=== PATIENT | female | born 1955 ===

== ENCOUNTER 2018-05-30 11:05 | Emergency (ER) | payer OTHER ==
[2018-05-30 11:22] VITALS: RESP 18; TEMP 97.8
[2018-05-30] MEDS ORDERED: Morphine 4 MG/ML VIAL IM STA (11:31)
--- NOTE | 2018-05-30 11:31 | ED PDOC ---
Upper Extremity Pain/Injury Time Seen by Provider: 05/30/18 11:23 Chief Complaint (Provider): Upper Extrmeity Pain/Injury History Per: Patient History/Exam Limitations: no limitations Onset/Duration Of Symptoms: Other (This morning) Additional Complaint(s): 63 y/o female with history of hypertension presents to ER for evaluation of left wrist injury after slipping and falling on floor this morning. Patient denies any dizziness, loss of consciousness or any other injury. PMD: None provided Past Medical History Reviewed: Historical Data, Nursing Documentation, Vital Signs Vital Signs: Last Vital Signs Temp 97.8 F 05/30/18 11:21 Pulse 64 05/30/18 11:21 Resp 18 05/30/18 11:21 BP Pulse Ox 100 05/30/18 11:21 - Medical History PMH: HTN - Surgical History Other surgeries: Right shoulder surgery in March 2018 - Family History Family History: States: Unknown Family Hx - Home Medications Home Medications: Ambulatory Orders Medication Instructions Recorded oxyCODONE/Acetaminophen [Percocet 1 ea PO Q8 #6 tab 05/30/18 5/325 mg Tab] - Allergies Allergies/Adverse Reactions: Allergies Allergy/AdvReac Type Severity Reaction Status Date / Time codeine Allergy SWELLING Verified 05/30/18 11:37 Review of Systems ROS Statement: Except As Marked, All Systems Reviewed And Found Negative Musculoskeletal: Positive for: Hand Pain (Left wrist) Neurological: Negative for: Dizziness Physical Exam - Reviewed Nursing Documentation Reviewed: Yes Vital Signs Reviewed: Yes - Physical Exam Appears: Positive for: Non-toxic, No Acute Distress Head Exam: Positive for: ATRAUMATIC, NORMOCEPHALIC Skin: Positive for: Normal Color, Warm, Dry Pulses-Radial (L): 2+ Extremity: Positive for: Deformity (to left wrist distal radial palmar aspect), Swelling (to left wrist distal radial palmar aspect), Other (Able to move fingers) Neurologic/Psych: Positive for: Alert, Oriented (x3) - ECG O2 Sat by Pulse Oximetry: 100 (RA) Pulse Ox Interpretation: Normal Medical Decision Making Medical Decision Making: Time: 1125 --Possible wrist fracture --Left hand and wrist x-ray and medicated for pain Scribe Attestation: Documented by Sisi Ann, acting as a scribe for Andrew Patricia MD. Discussed with PMD Dr. Prado [phone]. Agrees with splint and pain meds and wants pt to call the office on Friday Provider Scribe Attestation: All medical record entries made by the Scribe were at my direction and personally dictated by me. I have reviewed the chart and agree that the record accurately reflects my personal performance of the history, physical exam, medical decision making, and the department course for this patient. I have also personally directed, reviewed, and agree with the discharge instructions and disposition. Disposition - Clinical Impression Clinical Impression: Fracture of wrist - Patient ED Disposition Is Patient to be Admitted: No Counseled Patient/Family Regarding: Studies Performed, Diagnosis, Need For Followup, Rx Given - Disposition Disposition: Routine/Home Disposition Time: 12:24 Condition: FAIR Prescriptions: oxyCODONE/Acetaminophen [Percocet 5/325 mg Tab] 1 ea PO Q8 #6 tab Instructions: Wrist Fracture (DC)
[2018-05-30] MEDS ORDERED: Morphine 4 MG/ML VIAL ONE (11:41)
--- NOTE | 2018-05-30 12:40 | RAD ---
Date of service: 05/30/2018 PROCEDURE: Left Wrist Radiographs. HISTORY: trauma COMPARISON: None. FINDINGS: BONES: Complex impacted comminuted fracture of the distal radius with potential involvement of the articular surface. No definite carpal bone fracture identified at this time. JOINTS: No subluxation or dislocation. Degenerative changes seen at the radiocarpal joints. SOFT TISSUES: Prominent dorsal soft tissue edema appreciated. OTHER FINDINGS: None. IMPRESSION: Comminuted impacted fracture distal left radius without dislocation. Likely articular involvement the radial carpal joint. Clinical correlation. No definite carpal bone fracture appreciable.
--- NOTE | 2018-05-30 12:41 | RAD ---
PROCEDURE: Left Hand Radiographs. HISTORY: trauma COMPARISON: None. FINDINGS: BONES: No acute fracture identified involving the left hand. No destructive bony lesion appreciated. 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 SOFT TISSUES: Normal. OTHER FINDINGS: Fracture distal left radius. IMPRESSION: Fracture distal left radius. Please separate more detailed evaluation in left wrist radiograph series also performed 05/30/2018. No acute fracture of the left hand or dislocation.
[2018-05-30 13:53] VITALS: BP 122/74; PULSE 68; O2SAT 98
== END 2018-05-30 13:54 | disposition home or self-care (01) ==
LOC: H.ER 11:05
DX: S62.002A Unspecified fracture of navicular [scaphoid] bone of left wrist, initial encounter for closed fracture (principal); W19.XXXA Unspecified fall, initial encounter; Y92.89 Other specified places as the place of occurrence of the external cause
CPT/HCPCS: 29125; 73110; 73130; 96372; 99283; J2270